=== PATIENT | male | born 1940 | race Caucasian/White ===

== ENCOUNTER 2018-03-21 12:14 | Observation (INO) ==
--- NOTE | 2018-03-21 12:25 | Emergency Department Note ---
Disposition Clinical Impression: DNR (do not resuscitate), Admission for hospice care Congestive heart failure Qualifiers: Heart failure type: unspecified Heart failure chronicity: acute on chronic Qualified Code(s): I50.9 - Heart failure, unspecified Disposition: Admitted As Inpatient Condition: Serious Time of Disposition: 13:01 SOB HPI - General Chief Complaint: ED Shortness of Breath/Dyspnea Stated Complaint: Difficult Breathing/hypoglycemia Time Seen by Provider: 03/21/18 12:21 Source: patient, family, EMS Mode of arrival: EMS Limitations: no limitations Nursing Notes Reviewed: Yes Vital Signs Reviewed: Yes - History of Present Illness Patient presents to the ED with chief complaint of shortness breath. Patient is end-stage renal disease on dialysis. Family reports that he is a DNR CC. Patient has given up the will to live. Over the last week. He is an ER a week ago and did get dialysis but left early. He has not had dialysis since. He has quit taking all of his medications. EMS was called today for shortness of breath. Initial blood sugar was in the low teens and they did allow him to be placed on oxygen and he did take oral glucose but it only came up to the 30s. Patient states that he is ready to . No fever. No chills. Has had some chest tightness, difficulty breathing, productive cough. No abdominal pain, nausea, vomiting or diarrhea. He does still intermittently make urine. States that they tried to call to have been placed on hospice on Thursday with her physician was unable to do so - Related Data Home Medications Medication Instructions Recorded Confirmed Apixaban [Eliquis] 5 mg PO BID 02/18/15 03/21/18 Tamsulosin [Flomax] 0.4 mg PO DAILY 02/18/15 03/21/18 Atorvastatin [Lipitor] 80 mg PO HS 04/27/15 03/21/18 Calcium Acetate [Phos-LO] 667 mg PO TIDWM 03/21/18 03/21/18 Carvedilol 3.125 mg PO BID 03/21/18 03/21/18 Colchicine [Colcrys] 0.6 mg PO DAILY PRN 03/21/18 03/21/18 Docusate Sodium [Dok] 100 mg PO DAILY 03/21/18 03/21/18 Folic Acid/Vit Bcomp,C [Renal 0.8 mg PO DAILY 03/21/18 03/21/18 Vitamin Tablet] Midodrine [ProAmatine] 5 mg PO MOWEFR 03/21/18 03/21/18 Allergies Allergy/AdvReac Type Severity Reaction Status Date / Time No Known Allergies Allergy Verified 03/21/18 12:19 Review of Systems: As reviewed in the HPI. All other systems reviewed are negative or normal. Past Medical History - Past Medical History Attestation: Yes The following information was validated with the patient. Source: patient, old records reviewed Medical history: Reports: diabetes, dialysis, hypertension, renal disease Surgical history: Reports: appendectomy, carotid endarterectomy, coronary bypass (CABG), hip replacement, orthopedic, other Psychiatric history: Reports: no psych history - Social History Smoking Status: Never smoker Smokeless Tobacco Status: No Alcohol use: Reports: none Drug use: Reports: none Physical Exam - General Limitations: no limitations - Head Head exam: atraumatic, normocephalic, normal inspection - Eye Eye exam: Present: normal appearance, PERRL, EOMI - ENT ENT exam: mucous membranes dry - Neck Neck exam: Present: normal inspection, full ROM - Chest Chest inspection: Present: normal inspection, symmetric chest wall rise - Respiratory Respiratory exam: Present: respiratory distress, other (Trace Rales throughout) - Cardiovascular Cardiovascular exam: Present: tachycardia, systolic murmur - Abdominal Exam Abdominal exam: Present: soft, Non-Tender - Extremities Exam Extremities exam: Present: pedal edema, other (L dialysis fistula) - Neurological Exam Neurological exam: Present: alert, oriented X3 - Psychiatric Psychiatric exam: Present: flat affect - Skin Skin exam: Present: warm, dry, intact, normal color Course Course Narrative: Patient presenting wanting to . Is a DNR CC. Wants nothing else done. Was unable to get hospice as an outpatient and is presenting in volume overload and hyperglycemic. I spoke with the on-call hospice nurse and she referred me to the on-call hospice physician. She states that they would have to admit the patient to the hospitalist service and have them consult since they are in inpatient service, only in the patient may only need observation criteria. Paged hospitalist at this time. - Reevaluation(s) Reevaluation #1: Patient admitted the hospitalist service. Vital Signs Temperature 97.9 F 03/21/18 12:25 Pulse Rate 58 03/21/18 12:25 Respiratory Rate 26 03/21/18 12:25 Blood Pressure 114/50 03/21/18 12:25 O2 Sat by Pulse Oximetry 93 03/21/18 12:25 Temperature 97.9 F 03/21/18 12:25 Pulse Rate 58 03/21/18 12:25 Respiratory Rate 26 03/21/18 12:25 Blood Pressure 114/50 03/21/18 12:25 O2 Sat by Pulse Oximetry 93 03/21/18 12:37 Oxygen Delivery Oxygen Delivery Nasal Cannula Critical Care Time Critical Care Time: Yes Total Critical Care Time: 35 Attestation: I personally spent ___35___ minutes devoted to the care of this critically ill patient who is in acute on chronic congestive heart failure and end-stage renal disease, refusing dialysis and all treatment. He presented with hypoxia requiring oxygen and significant hypoglycemi.. This time excludes the time for billable procedures. Attestation Statement - Attestation Attestation: Patient was seen with resident physician. I reviewed the history, physical, assessment and plan, and agree with the findings. I also personally evaluated this patient and had [id number] time with this patient. 77-year-old male presents emergency department wanting to . He apparently became hypoglycemic today. Patient has been made a DNR CCA. He lost his will to live. Patient stopped dialysis early approximately week ago and has not had any since. says he has been in 4 days. Patient stopped taking the vast majority of his medications as well. The primary goal coming into the hospital today was to effect getting the patient into hospice care. They said they could not do that from home. They deny other complaints. Patient is alert. He was given some oral glucose by EMS who found his glucose to be 24. Review of systems as above remainder negative. Physical exam vital signs largely unremarkable. ENT dry mucous membranes. Heart regular rhythm and rate. Lungs diffuse crackles throughout with coarse breath sounds. He also has a slight increased work of breathing. Abdomen is soft and nontender. Extremities show some skin changes but no appreciable swelling. Neurologically he is alert he moves all extremities. He answers questions appropriately. Skin no obvious rashes. ED course. We spoke with the on-call hospice doctor who suggested we admit to the hospitalist service so that he can get integrated into hospice care. We will speak with the hospitalist to help get the patient admitted. Patient refused all treatments except for oral glucose provided from EMS. He was offered a meal and refused. He is offered IV and refused.
[2018-03-21 12:36] VITALS: BP 114/50
[2018-03-21] MEDS ORDERED: Naloxone 0.4 MG/ML INJ IVP PRN ×2 (13:36→14:40)
--- NOTE | 2018-03-21 14:45 | Internal Med History&Physical ---
Date of Encounter: 03/21/18 Time of Encounter: 14:42 Internal Medicine - H&P: HPI Chief complaint: SHORTNESS OF BREATH, ESRD, REQUESTING HOSPICE CARE Admitted From: Home Plans for Post Hospital Care: at Home History of present illness: Mr. Caro is a 77 year old male with a chief complaint of dyspnea. He was noted to be hypoxic by EMS and was agreeable to oxygen. Hypoxia resolved after O2 supplementation. Additionally, he was found to be hypoglycemic by EMS and was given glutose gel with FSBG improving to 30. He does not wish for any further intervention for glucose or oxygen. He arrived to [place] ED with complaints of shortness of breath. He is an end-stage renal disease patient on hemodialysis who reports that his last treatment was this past Thursday. The patient has since decided to forego additional dialysis treatments and has not and taking his medications. He is here today requesting hospice care. Both he and his family are requesting DNRCC status. He does appear of sound mind. I will admit and consult palliative care physician. Past Med Surg Social Fam HX - Past Medical History Medical history: diabetes, dialysis, hypertension, renal disease Additional medical history: Stg 3 pressure ulcer of coccyx Psychiatric history: no psych history - Past Surgical History Surgical History: appendectomy, carotid endarterectomy, coronary bypass (CABG), hip replacement, orthopedic, other Additional surgical history: left hip, dialysis shunt to left arm. - Social History Smoking Status: Never smoker Smokeless Tobacco Status: No Alcohol use: none Drug use: none - Family History Father Living Status: Hx Family Cardiac Disorders: Yes Internal Medicine - H&P: Meds Apixaban [Eliquis] 5 mg PO BID 02/18/15 [History] Tamsulosin [Flomax] 0.4 mg PO DAILY 02/18/15 [History] Atorvastatin [Lipitor] 80 mg PO HS 04/27/15 [History] Calcium Acetate [Phos-LO] 667 mg PO TIDWM 03/21/18 [History] Carvedilol 3.125 mg PO BID 03/21/18 [History] Colchicine [Colcrys] 0.6 mg PO DAILY PRN 03/21/18 [History] Docusate Sodium [Dok] 100 mg PO DAILY 03/21/18 [History] Folic Acid/Vit Bcomp,C [Renal Vitamin Tablet] 0.8 mg PO DAILY 03/21/18 [History] Midodrine [ProAmatine] 5 mg PO MOWEFR 03/21/18 [History] Allergy/AdvReac Type Severity Reaction Status Date / Time No Known Allergies Allergy Verified 03/21/18 12:19 All Systems PM: A 10-system review of systems was performed and is negative for pertinent findings except as documented above in the HPI. - Constitutional Additional comments: REVIEW OF SYSTEMS GENERAL: POSITIVE FOR WEAKNESS, FATIGUE, WEIGHT DISTRESS DUE TO FAILING HEALTH CARDIAC: Negative for any chest pain, POSITIVE FOR SHORTNESS OF BREATH PULMONARY: POSITIVE FOR SHORTNESS OF BREATH GASTROINTESTINAL: Negative for any abdominal pain, nausea, vomiting,DIARRHEA - Constitutional Vitals: Temp Pulse Resp BP Pulse Ox 97.9 F 58 26 114/50 93 03/21/18 12:25 03/21/18 12:25 03/21/18 12:25 03/21/18 12:25 03/21/18 12:37 General appearance: Present: cachectic (FRAIL AND WEAK APPEARING), A&O X 3, no acute distress Exam: cc EXAM - Respiratory Respiratory exam: Present: decreased breath sounds, CTAB. Absent: accessory muscle use, chest wall tenderness, prolonged expiratory phase, rales, respiratory distress, rhonchi, wheezes, tachypnea - Cardiovascular Cardiovascular exam: Present: bradycardia, irregular rhythm, +S1, +S2. Absent: diastolic murmur, gallop, rubs, systolic murmur, tachycardia - GI/Abdominal GI/Abdominal exam: Present: normal bowel sounds, soft, no peritoneal signs. Absent: distended, tenderness - Psychiatric Psychiatric exam: Present: flat affect - Assessment and plan (1) Admission for hospice care Current Visit: Yes Status: Acute Assessment and plan: end stage renal disease patient wishing to no longer pursue treatment requesting hospice consult to palliative care make DNRCC (2) Shortness of breath Current Visit: Yes Status: Acute (3) DNR (do not resuscitate) Current Visit: Yes Status: Acute - Time Spent With Patient Total time spent is greater than 50% in coordination of care (as documented) at patient's floor/unit and/or counseling patient: less than 15 minutes - VTE Reasons for not Prescribing Prophylaxis: Medical contraindication
--- NOTE | 2018-03-21 16:15 | Discharge Summary ---
Date of Encounter: 03/21/18 Time of Encounter: 16:13 - Discharge Diagnosis (1) Admission for hospice care Priority: Primary Status: Acute Assessment and Plan: end stage renal disease patient wishing to no longer pursue treatment requesting hospice consult to palliative care make DNRCC patient refusing medications and care He will be d/c'd to hospice care He and family with d/w hospice care provider whether to resume home meds; defer to hospice provider (2) Shortness of breath Priority: Secondary Status: Acute (3) DNR (do not resuscitate) Priority: Secondary Status: Acute Hospital course: Mr. Caro is a 77 year old male admitted with request for hospice care. Case discussed with Palliative care physician who is admitting the patient to Hospice care. Discharge discussed with: patient, family, nurse, rural health consultant - Time Spent with Patient Total time spent providing and/or coordinating discharge services: Less than 30 minutes - Discharge Medications Allergies/Adverse Reactions: Allergy/AdvReac Type Severity Reaction Status Date / Time No Known Allergies Allergy Verified 03/21/18 12:19 Date of admission: 03/21/18 13:06 Primary care physician: Keiry Palma CNP Consults: 03/21/18 12:47 Consult to Hospice Svc [CONS] Routine Comment: 03/21/18 14:40 Consult to Palliative Care [CONS] Routine Comment: Consulting Provider: Palliative Care Debra Reason for Consult: DISCUSS PALLIATIVE VS HOSPICE CARE Time Notified: 14:40 Call Completed: Yes Discharging clinician: Zain Kimble Anticipated date of discharge: 03/21/18 - Constitutional Vitals: Temp Pulse Resp BP Pulse Ox 97.9 F 58 26 114/50 93 03/21/18 12:25 03/21/18 12:25 03/21/18 12:25 03/21/18 12:25 03/21/18 14:38 General appearance: Present: cachectic (FRAIL AND WEAK APPEARING), A&O X 3, no acute distress Exam: cc EXAM - Patient Status Disposition: Hospice - Medical Facility Condition: Serious Functional capacity at discharge: bed bound Overall status at discharge: other (hospice intent) - Discharge Instructions Follow Up With: Keiry Palma CNP [Primary Care Provider] - - Diet and Activity Activity: other Diet: advance to your usual diet - VTE Reasons for not Prescribing Prophylaxis: Medical contraindication
--- NOTE | 2018-03-21 16:17 | Palliative - Consult Note ---
Date of Encounter: 03/21/18 Time of Encounter: 14:00 - Assessment and Plan (1) Goals of care, counseling/discussion Status: Acute Assessment and plan: Met with pt and family. Pt reported he has decided to discontinue all medications, and that his last session of HD was Thursday. He is requesting comfort care only. His code status is DNRCC. Decision was made to transition to hospice GIP for treatment f dyspnea. Patient live home alone with . Family will need few days to organize for hospice care at home if pt remains stable. However, pt was on HD for 3 years and has been off HD for 7 days. Prognosis off HD for pt dyalisis dependent is 8 to 10 days. Will admit to [facility]. (2) Dyspnea Status: Acute Assessment and plan: Oxygen, morphine prn Qualifiers: Dyspnea type: shortness of breath Qualified Code(s): R06.02 - Shortness of breath; R06.00 - Dyspnea, unspecified; R06.01 - Orthopnea (3) ESRD (end stage renal disease) Status: Acute Assessment and plan: patient decided to discontinue HD. (4) Hospice care Status: Acute Assessment and plan: anxiety: Ativan prn secretions: scopolamine patch, atropine prn constipation: Senna BID Palliative-CN HPI - Data of Consult Patient: new to practice Consult date: 03/21/18 Requesting Physician: Gregg Rudd MD Primary Care Provider: Keiry Palma CNP - Consult Narrative Palliative Care/Comfort Measures: Palliative care Reason for consult: Hospice evaluation and admission History of present illness: Mr. Caro is a 77 year old male, with PMH of DM, HTN, CHF, ESRD on HD, presented to the ED complaining of SOB. Pt has been on HD for 3 years, and has recently decided to discontinue HD. Family called hospice from home, but the admission was not yet finalized. Pt today was feeling uncomfortable and short of breath, so he was brought to the ED. Patient states that he was ready to , and refusing any work up or medication not geared toward comfort. At the time of exam, pt is surrounded by family: , 3 sons (Joe, Shown, Cristhian), daughter in law Geraldine and grand-daughter Jayne. He stated that his only complain is difficulty breathing. Otherwise he denies any pain, nausea, vomi ting, dysuria. Last BM was 4 days ago. CC: Gregg Rudd MD - Time Spent with Patient Time: Total time spent is greater than 50% in coordination of care (as documented) at patient's floor/unit and/or counseling patient: Time with patient: 60 minutes Past Med Surg Social Fam HX - Past Medical History Medical history: diabetes, dialysis, hypertension, renal disease Additional medical history: Stg 3 pressure ulcer of coccyx Psychiatric history: no psych history - Past Surgical History Surgical History: appendectomy, carotid endarterectomy, coronary bypass (CABG), hip replacement, orthopedic, other Additional surgical history: left hip, dialysis shunt to left arm. - Social History Smoking Status: Never smoker Smokeless Tobacco Status: No Alcohol use: none Drug use: none - Family History Father Living Status: Hx Family Cardiac Disorders: Yes Medications and Allergies Allergy/AdvReac Type Severity Reaction Status Date / Time No Known Allergies Allergy Verified 03/21/18 12:19 - Constitutional Constitutional ROS PAL: decreased appetite, malaise - EENT Eyes: dry eye - Cardiovascular Cardiovascular ROS: edema, no chest pain - Respiratory Respiratory: cough, dyspnea - Gastrointestinal Gastrointestinal: no abdominal pain - Genitourinary Genitourinary ROS male: no dysuria - Musculoskeletal Musculoskeletal ROS IM: muscle weakness - Integumentary ROS Integumentary: no as per HPI - Neurological Neurological ROS: no behavioral changes, no focal weakness - Psychiatric Psychiatric general PM: no depression Palliative Care-Exam - Constitutional Vitals: Temp Pulse Resp BP Pulse Ox 97.9 F 58 26 114/50 93 03/21/18 12:25 03/21/18 12:25 03/21/18 12:25 03/21/18 12:25 03/21/18 14:38 Exam: Vitals reviewed General appearance: alert, oriented x3, moderate distress Eyes: nonicteric, left lower eyelid edema EENT: oropharynx moist Neck: supple, no lymphadenopathy, no JVD Chest: bilateral:reduced breath sounds, expiratory wheezes Cardiovascular: regular rate and rhythm Gastrointestinal: soft, non-tender, non-distended Integumentary: normal Extremities: no cyanosis, bilateral leg edema, no clubbing Musculoskeletal: no deformities Neurologic: normal mental status, non-focal exam Psych: mood appropriate, affect normal Consult Discharge Plan - Plan Referrals: Keiry Palma, [employer] [Primary Care Provider] - Palliative Quality Palliative Quality: Screen for Code Status: Yes, Screen for Goals of Care: Yes, Screen for Pain: Yes, If Pain Regimen Started, Initiate Bowel Regimen: Yes, Screen for Nausea/Vomitting: Yes Code Status: 03/21/18 13:36 Resuscitation Status: Active [RES] Routine Comment: Resuscitation Status: DNR-Comfort Care
== END 2018-03-21 16:31 | disposition expired ==
LOC: EMEROOARM 12:14 → 2ANU 12:14
PROVIDERS: ADMIT Internal Medicine; ATTEND Internal Medicine